=== PATIENT | male | born 1995 | race Two or more races ===

== ENCOUNTER 2019-06-08 23:47 | Emergency (ER) | payer SELFPAY ==
[~2019-06-08] VITALS: Ht 160 cm; Wt 65.8 kg
--- NOTE | 2019-06-08 23:50 | NUR ---
ED Nurse Note: Pt BIBA RA26 from home c/o OD of unk rajbtance. [facility] gave Narcan, effective. BS 192 with nausea/vomiting. Pt is AO x 3times, VSS, on room air no distress. ERMD seen Pt at bedside.
--- NOTE | 2019-06-08 23:52 | Emergency Room Report ---
History of Present Illness General Chief Complaint: Overdose Source: Patient, EMS Present Illness HPI Is a 23-year-old male who presents with chief complaint of overdose. Family called 911 because he was unresponsive and was not breathing very well. Per EMS, on arrival he has pinpoint pupils and sonorous respiration. They gave him a dose of Narcan and he woke up. Patient no alcohol use. He is not cooperative. Not suicidal or homicidal. Allergies: Coded Allergies: No Known Allergies (Unverified , 06/08/19) Patient History Past Medical History: see triage record, old chart reviewed Past Surgical History: none Pertinent Family History: none Social History: Denies: smoking Immunizations: other Reviewed Nursing Documentation: PMH: Agreed; PSxH: Agreed Nursing Documentation-PMH Past Medical History: No Stated History Review of Systems Eye: Denies: eye pain, blurred vision ENT: Denies: ear pain, nose congestion, throat swelling Respiratory: Denies: cough, shortness of breath Cardiovascular: Denies: chest pain, palpitations Gastrointestinal: Denies: abdominal pain, diarrhea, nausea, vomiting Musculoskeletal: Denies: back pain, joint pain Skin: Denies: rash Neurological: Denies: headache, numbness Endocrine: Denies: increased thirst, increased urine Hematologic/Lymphatic: Denies: easy bruising All Other Systems: negative except mentioned in HPI Physical Exam Vital Signs Date Time Temp Pulse Resp B/P (MAP) Pulse Ox O2 Delivery O2 Flow Rate FiO2 06/08/19 23:42 98.2 94 16 122/74 (90) 99 Room Air Vitals normal Sp02 EP Interpretation: reviewed, normal General Appearance: well appearing, no apparent distress, alert Head: normocephalic, atraumatic Eyes: bilateral eye PERRL, bilateral eye EOMI ENT: hearing grossly normal, normal pharynx Neck: full range of motion, supple, no meningismus Respiratory: chest non-tender, lungs clear, normal breath sounds Cardiovascular #1: regular rate, rhythm, no murmur Gastrointestinal: normal bowel sounds, non tender, no mass, no organomegaly, no bruit, non-distended Musculoskeletal: back normal, gait/station normal, normal range of motion Psychiatric: mood/affect normal Medical Decision Making Diagnostic Impression: Primary Impression: Drug overdose Qualified Codes: T50.901A - Poisoning by unspecified drugs, medicaments and biological substances, accidental (unintentional), initial encounter ER Course Patient appeared to overdose on an opiate-like substance screen was negative. This could be an synthetic or sometime other opiates will show up on the drug screen. Patient was not cooperative with me or nursing staff. He did admit to the please officer that he snorted a whitish substance. He thought it was cocaine. This could have been laced with fentanyl. He is stable and sleeping through the night. Easily awake able. Did not need any further Narcan. Breathing normally. Not suicidal or homicidal. No criteria for 5150. Will discharge home in the morning. This patient is a chronic risk of self injury due to poor impulse control, limited coping skills, and judgment intermittently impaired by intoxication. I believe that the available clinical evidence to suggest that these characteristics derived primarily from personality disorder and are likely very stable over time. Hospitalization would likely attenuate risk of self-harm only during correction period, without lasting risk reduction. Serious self-harm , while possible, would likely be inadvertent, and because of impulsivity, and foreseeable. For these reasons, I do not believe hospitalization would provide meaningful reduction in risk of self-harm. Last Vital Signs Date Time Temp Pulse Resp B/P (MAP) Pulse Ox O2 Delivery O2 Flow Rate FiO2 06/08/19 23:42 98.2 94 16 122/74 (90) 99 Room Air Status: improved Disposition: HOME, SELF-CARE Condition: Stable Additional Instructions: Stop using drugs. Follow-up with rehab. With your doctor in a week. Return if worse. John Cueva MD Jun 08, 2019 23:52
--- NOTE | 2019-06-09 00:11 | NUR ---
ED Nurse Note: Urine and blood sample sent to lab.
[2019-06-09 00:14] VITALS: BP 120/77
--- NOTE | 2019-06-09 02:02 | NUR ---
ED Nurse Note: Pt asleep when visited, VSS.
[2019-06-09 02:03] VITALS: BP 114/74
[2019-06-09 03:43] VITALS: BP 112/67
--- NOTE | 2019-06-09 03:44 | NUR ---
ED Nurse Note: Pt VSS, water provided.
[2019-06-09 05:45] VITALS: BP 124/78
--- NOTE | 2019-06-09 05:45 | NUR ---
ER DISCHARGE NOTE: Patient is cleared to be discharged per ERMD, pt is aox4, on room air, with stable vital signs. pt was given dc and prescription instructions, pt was able to verbalize understanding, pt id band and iv site removed without complications. pt is able to ambulate with steady gait. pt took all belongings.
[2019-06-09 05:58] VITALS: BP 124/78
== END 2019-06-09 05:59 | disposition home or self-care (01) ==
LOC: EDBD 23:47 → EMR 23:59
DX: T50.901A Poisoning by unspecified drugs, medicaments and biological substances, accidental (unintentional), initial encounter (principal); X58.XXXA Exposure to other specified factors, initial encounter; Y92.9 Unspecified place or not applicable
CPT/HCPCS: 36415; 80307; 99283; G0480; 80329